=== PATIENT | male | born 1970 | race African-American/Black ===

== ENCOUNTER 2020-01-20 15:20 | Emergency (ER) | payer SELFPAY ==
[~2020-01-20] VITALS: Ht 180.3 cm; Wt 136.1 kg
[~2020-01-20 15:20] MED LIST: ACET-1603 PO; APIX5TAB PO; CARV3.1240 PO; LISI-275 PO
[2020-01-20 15:43] VITALS: BP 174/82
[2020-01-20 16:55] LABS: Basophils # (auto) 0 10 ^3/uL (0-0.2); Basophils % (auto) 0.4 % (0.0-2.0); Eosinophils # (auto) 0.1 10 ^3/uL (0-0.8); Eosinophils % (auto) 2.1 % (0.0-7.0); Hematocrit 30.3 % (41.0-53.0); Hemoglobin 10.1 g/dL (13.5-17.5); Lymphocytes # (auto) 1.2 10 ^3/uL (0.4-5.4); Lymphocytes % (auto) 39.6 % (10.0-50.0); Mean Corpuscular Hemoglobin 33.4 pg (28.0-32.0); Mean Corpuscular Hgb Conc. 33.3 g/dL (32.0-36.0); Mean Corpuscular Volume 100.4 fL (80.0-100.0); Monocytes # (auto) 0.2 10 ^3/uL (0-1.3); Monocytes % (auto) 7.5 % (0.0-12.0); Neutrophils # (auto) 1.6 10 ^3/uL (1.6-8.6); Neutrophils % (auto) 50.4 % (37.0-80.0); Nucleated Red Blood Cells % 0.2 %; Platelet Count (auto) 271 10^3/uL (140-450); Red Blood Cells 3.02 10^6/uL (4.5-5.90); Red Cell Distribution Width 17.9 % (11.8-14.3); White Blood Cell 3.1 10^3/uL (4.4-10.8)
[2020-01-20 17:10] LABS: Albumin 3.1 g/dL (3.4-5.0); BUN/Creatinine Ratio 11.5; Calcium 8.3 mg/dL (8.5-10.1); Potassium 3.9 mmol/L (3.5-5.1)
[2020-01-20 17:13] LABS: Bilirubin, Total 0.2 mg/dL (0.2-1.0); Total Protein 9.8 g/dL (6.4-8.2)
[2020-01-20] MEDS ORDERED: IOHEXOL 350 MG/ML 100ML IJ ONE (17:33)
[2020-01-20] MEDS ORDERED: PANTOPRAZOLE 40 MG TAB PO ONE (18:45)
[2020-01-20] MEDS ORDERED: HYDROcodone-ACET 10/325MG TAB PO ONE (18:45)
== END 2020-01-20 22:05 | disposition left against medical advice (07) ==
LOC: ER 15:20
DX: K29.70 Gastritis, unspecified, without bleeding (principal); L03.115 Cellulitis of right lower limb; D64.9 Anemia, unspecified; E27.8 Other specified disorders of adrenal gland; E11.9 Type 2 diabetes mellitus without complications; F41.9 Anxiety disorder, unspecified; F32.9 Major depressive disorder, single episode, unspecified; Z79.899 Other long term (current) drug therapy
CPT/HCPCS: 36415; 71045; 71275; 74176; 76775; 80053; 82150; 83690; 83880; 84484; 85025; 85379; 93971; 99285; Q9967